=== PATIENT | female | born 1990 | race Caucasian/White ===

== ENCOUNTER 2022-09-10 16:41 | Outpatient (CLI) | payer BC, SELFPAY ==
[2022-09-10 14:15] LABS: Albumin* 4.3 g/dL (3.3-5.0); Chloride* 106 mmol/L (96-114); Potassium* 4.3 mmol/L (3.6-5.1); Sodium* 138 mmol/L (135-149)
[2022-09-10 14:17] LABS: Aspartate Amino Transferase* 18 U/L (12-35); Bilirubin Total* 0.9 mg/dL (0.1-1.5); Blood Urea Nitrogen* 12 mg/dL (5-24); Carbon Dioxide* 27 mmol/L (20-32); Cholesterol* 170 mg/dL (90-199); Creatinine* 0.7 mg/dL (0.5-1.5); Estimated Glomerular Filt Rate 117 ml/min; Total Protein* 6.7 g/dL (6.0-8.3)
[2022-09-10 14:18] LABS: Alanine Aminotransferase* 12 U/L (4-35); Alkaline Phosphatase* 38 U/L (40-150); Calcium* 9.3 mg/dL (8.4-10.6); Glucose* 79 mg/dL (60-115); HDL Cholesterol* 48 mg/dL (>=50); LDL Cholesterol Calculated 105 mg/dL (<100); Triglycerides* 84 mg/dL (40-149)
== END 2022-09-10 16:42 | disposition home or self-care (01) ==
PROVIDERS: Visit Provider Family Medicine
DX: E03.9 Hypothyroidism, unspecified (principal); Z13.6 Encounter for screening for cardiovascular disorders
CPT/HCPCS: 80053; 80061; 84443

== ENCOUNTER 2022-10-29 15:02 | Inpatient (IN) | payer BC, SELFPAY ==
[2022-10-28] VITALS (21 sets, daily range): BP systolic 93–130; BP diastolic 62–103; PULSE 64–118; RESP 14–22; TEMP 36.3–36.9; O2SAT 92–100; BMI 22.7
[2022-10-28 09:35] LABS: SARS PCR* Negative SARS-CoV-2 (Negative)
[2022-10-28 10:24] LABS: Hemoglobin* 14.1 gm/dL (12.0-16.0)
[2022-10-28 10:27] LABS: Ur HCG Qualitative* Negative (Negative)
[2022-10-28] MEDS: LACTATED RINGERS 1000 ML 1,000 ML 100 ML IV ×2 (10:40→12:39)
[2022-10-28] MEDS: SODIUM CHLORIDE 0.9 % (FLUSH) 10 ML SYRINGE IVF (10:41)
[2022-10-28 10:56] LABS: Creatinine* 0.7 mg/dL (0.5-1.5); Est. Creatinine Clearance* 98.71; Estimated Glomerular Filt Rate 117 ml/min
[2022-10-28] MEDS: CEFAZOLIN 2 GM INJ IVP (12:11)
[2022-10-28] MEDS: VASOPRESSIN 20 UNIT/ML INJ INJECTION (12:50)
[2022-10-28] MEDS: 0.9 % SODIUM CHLORIDE 50 ml 100 ML INJECTION (12:50)
[2022-10-28] MEDS: LIDOCAINE 1 % PF 30 ML INJECTION (12:50)
[2022-10-28] MEDS: fentaNYL 100 MCG/2 ML inj 50 MCG IVP (14:13)
--- NOTE | 2022-10-28 14:16 | W.ANESCHARGE ---
Anesthesia Charges Start Date/Time Anesthesia Start Date: 10/28/22 Anesthesia Start Time: 12:03 Stop Date/Time Anesthesia Stop Date: 10/28/22 Anesthesia Stop Time: 14:13 Summary Emergency: No
--- NOTE | 2022-10-28 14:18 | W.PM.GYNPROC ---
Procedure Note Date Seen: 10/28/22 Procedure Details: PREOPERATIVE DIAGNOSIS: Stage I A1 adenocarcinoma of cervix POSTOPERATIVE DIAGNOSIS: Same PROCEDURE: Total vaginal hysterectomy with bilateral salpingectomy Cystoscopy SURGEON: Delmis Solomon MD ANESTHESIA: Spinal IV FLUIDS: 700 mL crystalloid URINE OUTPUT: Not measured EBL: 25 mL FINDINGS: 1. Upon pelvic exam under anesthesia, the cervix and vagina were normal in appearance, excited from a deep cleft along the cervix at 8 o'clock, likely from previous cold knife cone procedure. Uterus was mobile and anteverted, of normal size and texture. There were no palpable adnexal masses. 2. Upon cystoscopy, bilateral ureteral jets were noted and there was no injury to the bladder mucosa. COMPLICATIONS: None PROCEDURE IN DETAIL: Patient was taken to the operating room with IV running. Spinal anesthesia was administered. She received cefazolin in preoperative prophylaxis. She was positioned in dorsal lithotomy position with her legs in candy-cane stirrups. Exam under anesthesia was performed for the above noted findings. Alcantar catheter was inserted. Weighted speculum was inserted. Cervix was grasped along its anterior and posterior lips with thyroid Debbie clamps. The cervical vaginal junction was circumferentially infiltrated with dilute vasopressin. The cervical vaginal junction was then incised circumferentially with Bovie electric cautery. The vaginal epithelium was dissected bluntly off bilateral uterosacral ligaments. Anterior colpotomy was performed sharply, and a Eli retractor was placed between the bladder and the uterus. The posterior colpotomy was performed sharply, and a long weighted speculum was placed in the cul-de-sac. Bilateral uterosacral ligaments were clamped, cut, suture ligated with 0 Vicryl, and tagged for later identification. The cardinal ligaments were serially clamped, cut, and suture ligated bilaterally with 0 Vicryl. Finally, the LigaSure Impact device was used to divide the remnants of the broad ligament bilaterally, ultimately freeing the uterus from its attachments to the pelvis. The left fallopian tube was actually divided from the mesosalpinx with the LigaSure Impact and removed still attached to the uterus. The uterus was delivered through the vagina. Bilateral ovaries were normal in appearance. The fimbriated edge of the left fallopian tube was grasped with [place] clamp. The left tube was then divided from the investing mesosalpinx, moving laterally to medially, ultimately removing the tube from the patient's body. Hemostasis was noted. The pedicles were examined and found to be hemostatic. There was some bleeding along the posterior vaginal cuff which was addressed with combination of Bovie and a whipstitch of 2-0 Vicryl. The angles of the vaginal cuff were closed with a stitch of 0 Vicryl, incorporating the distal most aspect of the uterosacral pedicle into the closure. The intervening vaginal cuff was closed with a series of [id number] sutures of 0 Vicryl. Hemostasis was noted. All instruments were removed from the vagina. Alcantar catheter was removed from the patient's bladder. Patient was administered IV sodium fluorescein to aid in visualization of ureteral jets. Cystoscopy was performed, revealing bilateral ureteral jets and no injury to the bladder. The cystoscope was removed and the Alcantar catheter replaced. Finally, the vulva was examined and there was a triangular patch of red in skin, approximately 2 cm in greatest dimension, noted along the midportion of the right labium majora. There was a smaller circular lesion, but 1 cm, along the left labium majora. These were consistent with either superficial garcia or traction on the skin. The subcutaneous tissues were injected with a small amount of 1% lidocaine at each site. Patient tolerated procedure well and was taken to recovery area in stable condition.
[2022-10-28] MEDS: HYDROmorphone 0.5 mg/0.5 ml inj IVP (14:37)
[2022-10-28] MEDS: OXYCODONE 5 MG TABLET PO ×3 (15:25→23:51)
[2022-10-28] MEDS: ACETAMINOPHEN 325 MG TABLET 650 MG PO (15:25)
[2022-10-28] MEDS: LACTATED RINGERS 1000 ML 1,000 ML 125 ML IV ×2 (15:32→23:02)
[2022-10-28] MEDS: diphenhydrAMINE 50 MG/ML inj 12.5 MG IVP (18:31)
[2022-10-28] MEDS: MORPHINE 2 MG/ML inj IVP ×2 (19:54→23:00)
[2022-10-28] MEDS: KETOROLAC 30 MG/ML inj IVP (20:51)
[2022-10-28] MEDS: ACETAMINOPHEN 500 MG TABLET 1000 MG PO (23:51)
[2022-10-28] MEDS: ONDANSETRON 2 MG/ML inj 4 MG IVP (23:56)
[2022-10-29] VITALS (45 sets, daily range): BP systolic 56–145; BP diastolic 41–114; PULSE 101–173; RESP 16–20; TEMP 36.5–37.7; O2SAT 93–100
[2022-10-29] MEDS: OXYCODONE 5 MG TABLET PO ×3 (00:29→23:41)
[2022-10-29] MEDS: ACETAMINOPHEN 500 MG TABLET 1000 MG PO ×2 (00:29→23:42)
[2022-10-29] MEDS: PROMETHAZINE 25 MG/ML INJ 12.5 MG IV (02:12)
[2022-10-29] MEDS: MORPHINE 2 MG/ML inj IVP ×3 (02:18→15:24)
[2022-10-29] MEDS: KETOROLAC 30 MG/ML inj IVP (02:51)
--- NOTE | 2022-10-29 03:09 | CRLHL7_ITS ---
For Patients: As a result of the Century Cures Act, medical imaging exams and procedure reports are released immediately into your electronic medical record. You may view this report before your referring provider. If you have questions, please contact your health care provider. Indication: Unstable vitals hysterectomy 15 hours ago Technique: Contrast CT abdomen and pelvis Comparison: No comparison FINDINGS: Heart size normal appeared lung bases are clear. Liver gallbladder pancreas spleen unremarkable adrenal glands unremarkable kidneys unremarkable normal caliber abdominal aorta and normal appendix. Alcantar in the urinary bladder which appears unremarkable. There is amount abdominal pelvic fluid. Dense hemorrhage/clot in the pelvis within the left pelvis a few foci of slightly increased density could represent active hemorrhage example see series 2, image 137 138 hysterectomy no significant hemorrhage in the prevesical space. There are scattered foci of air in the pelvis likely postsurgical. No suspicious bony lesions. Impression: 1. Large amount of fluid in the abdomen and pelvis with dense hemorrhage clot in the pelvis greater on the left. Some scattered foci of increased density in the pelvis may represent active hemorrhage. A few scattered foci of air likely postsurgical results called to Dr. Eubanks on 10/29/22 at 4:20am. Please note that all CT scans at this facility use dose modulation, iterative reconstruction, and/or weight-based dosing when appropriate to reduce radiation dose to as low as reasonably achievable. Dictated by Lisbeth Moon MD @ 10/29/2022 4:23:29 AM (Electronically Signed)
[2022-10-29 03:23] LABS: Hematocrit 21.8 % (33.0-51.0); Immature Granulocytes Pct Auto 0.6 %; Lymphocytes Percent Auto 5.2 % (20-44); Mean Corpuscular HGB Conc 34 gm/dL (32-36); Mean Corpuscular Hemoglobin 33 pg (26-34); Mean Corpuscular Volume 96 fL (80-100); Neutrophils Percent Auto 89.2 % (42.0-72.0); Platelet Count* 501 K/uL (140-440); RDW Coefficient of Variation % 12.2 % (11.5-15.5); Red Blood Count 2.28 m/uL (4.00-5.20); White Blood Count* 20.04 K/uL (4.50-11.00)
[2022-10-29 03:28] LABS: Hemoglobin* 7.4 gm/dL (12.0-16.0); Slide Review Reflex No
[2022-10-29 03:38] LABS: Estimated Glomerular Filt Rate 76 ml/min
[2022-10-29 03:44] LABS: Albumin* 2.7 g/dL (3.3-5.0)
[2022-10-29 03:45] LABS: Chloride* 103 mmol/L (96-114); Potassium* 4.6 mmol/L (3.6-5.1); Sodium* 130 mmol/L (135-149)
[2022-10-29 03:47] LABS: Alkaline Phosphatase* 27 U/L (40-150); Aspartate Amino Transferase* 15 U/L (12-35); Bilirubin Total* 1.4 mg/dL (0.1-1.5); Carbon Dioxide* 21 mmol/L (20-32); Creatinine* 1.1 mg/dL (0.5-1.5); Est. Creatinine Clearance* 62.82; Estimated Glomerular Filt Rate 68 ml/min; Total Protein* 4.6 g/dL (6.0-8.3)
[2022-10-29 03:48] LABS: Alanine Aminotransferase* 14 U/L (4-35); Blood Urea Nitrogen* 19 mg/dL (5-24); Calcium* 7.5 mg/dL (8.4-10.6); Glucose* 230 mg/dL (60-115)
--- NOTE | 2022-10-29 04:09 | PM.GYNPNPO ---
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 Consented for exploratory laparotomy obtain hemostasis. 2. Verbal consent obtained for blood transfusion of 2 units packed red blood cells may require additional blood products postoperatively. 3. Will be heading to the operating room shortly. 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 I was called by the patient's nurse approximately 3:00 a.m. on 10/29/2022 with concerns for tachycardia, hypotension and difficulty maintaining pain control since early last evening. Her blood pressure has been 60s/30s - 70s/40s with her pulse 110's. UOP 28ml/hour = oliguric. CBC showed hemoglobin of 7.4 with preoperative hemoglobin of 14.1, WBC = 20.04, platelets 501K. The patient just returned from a CT scan of the pelvis to assess for active bleeding. I spoke with the radiologist and there is a large amount of blood in the pelvis with clots on the left pelvic area suspicious for bleeding from the left pelvic blood vessels. She was consented for exploratory laparotomy. Dr. Solomon was notified. She is getting 2 units of packed red blood cells. Co a eggs and comprehensive metabolic panel are pending. 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 Complains of pelvic pain. Vital signs: Included in her medical record Psychiatric: Alert and oriented x3. Cardiac: Tachycardic, regular rate and rhythm. No gallop, rub or murmur. Chest: Clear to auscultation bilaterally. Abdomen: Mildly distended with mid suprapubic and left lower quadrant tenderness with rebound and guarding in the left lower quadrant. Decreased bowel sounds throughout. No CVA or flank tenderness. Extremities: No pain or edema. 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 Data Labs Labs: Laboratory Results - last 24 hr 10/28/22 10/28/22 10/28/22 08:52 10:16 10:16 WBC RBC Hgb 14.1 Hct MCV MCH MCHC RDW Coeff of Cris Plt Count Neut % (Auto) Lymph % (Auto) [place] % (Auto) Eos % (Auto) Baso % (Auto) Neut # (Auto) Lymph # (Auto) [place] # (Auto) Eos # (Auto) Baso # (Auto) Sodium Potassium Chloride Carbon Dioxide BUN Creatinine 0.7 Estimated Creat Clear 98.71 Estimated GFR 117 Glucose Calcium Total Bilirubin AST ALT Alkaline Phosphatase Total Protein Albumin Urine HCG, Qual SARS-CoV-2 (PCR) Negative SARS-CoV-2 Blood Type Antibody Screen Crossmatch ([facility]) 10/28/22 10/28/22 10/29/22 10:16 10:16 03:18 WBC RBC Hgb Hct MCV MCH MCHC RDW Coeff of Cris Plt Count Neut % (Auto) Lymph % (Auto) [place] % (Auto) Eos % (Auto) Baso % (Auto) Neut # (Auto) Lymph # (Auto) [place] # (Auto) Eos # (Auto) Baso # (Auto) Sodium Potassium Chloride Carbon Dioxide BUN Creatinine 1.0 Estimated Creat Clear 69.10 Estimated GFR 76 Glucose Calcium Total Bilirubin AST ALT Alkaline Phosphatase Total Protein Albumin Urine HCG, Qual Negative SARS-CoV-2 (PCR) Blood Type O Positive Antibody Screen NEGATIVE Crossmatch ([facility]) See Detail 10/29/22 10/29/22 03:18 03:18 WBC 20.04 H RBC 2.28 L Hgb 7.4 L* Hct 21.8 L MCV 96 MCH 33 MCHC 34 RDW Coeff of Cris 12.2 Plt Count 501 H Neut % (Auto) 89.2 H Lymph % (Auto) 5.2 L [place] % (Auto) 5.0 Eos % (Auto) 0.0 Baso % (Auto) 0.0 Neut # (Auto) 17.90 H Lymph # (Auto) 1.00 [place] # (Auto) 1.00 H Eos # (Auto) 0.00 Baso # (Auto) 0.00 Sodium 130 L Potassium 4.6 Chloride 103 Carbon Dioxide 21 BUN 19 Creatinine 1.1 Estimated Creat Clear 62.82 Estimated GFR 68 Glucose 230 H Calcium 7.5 L Total Bilirubin 1.4 AST 15 ALT 14 Alkaline Phosphatase 27 L Total Protein 4.6 L Albumin 2.7 L Urine HCG, Qual SARS-CoV-2 (PCR) Blood Type Antibody Screen Crossmatch ([facility])
[2022-10-29 04:31] LABS: INR 1.35 (0.91-1.10); Prothrombin Time 17.4 Seconds
[2022-10-29 04:32] LABS: Partial Thromboplastin Time* 27 Seconds (23-33)
[2022-10-29 04:33] LABS: Fibrinogen* 184 mg/dL (200-450)
--- NOTE | 2022-10-29 05:00 | P.PCN_ITS ---
Procedure Note Time Seen by Provider: 05:00 Date Seen: 10/29/22 Date of procedure: 10/29/22 Will [facility] bill your pro fee for this procedure?: Yes Procedure: Preoperative diagnosis: 32-year-old 2 para 2 postop day 1 from total vaginal hysterectomy for microinvasive cervical cancer with internal hemorrhaging. Postoperative diagnosis: Same: 2885 mL of blood and clot in the pelvis, 1 small arterial ligated. Procedure: Exploratory laparotomy, evacuation of blood and clot, obtained hemostasis Anesthesia: General endotracheal Surgeon: Bindu Eubanks MD Assist: Delmis Solomon MD IV Fluid: 1500 mL lactated Ringer's and 1500 mL normal saline Quantitative blood loss: 2885 mL Urine output: 500 mL clear urine at the end of the procedure Drains: Alcantar to gravity Specimen: None. Findings: On entry into the abdomen there were large clots and blood within the pelvis. The clots were weighed and blood measured from suction. Ovaries appeared normal. There was 1 arterial that was actively bleeding in the left pelvis with in the hysterectomy pedicles. Possibly a small uterine or infundibulopelvic ligament vessel. Excellent hemostasis was noted at the end of the procedure. Procedure: Patient was taken the operating room where general is she is was found be adequate. She was placed in dorsal supine position. Catheter was in place prior to arriving in the operating room. Prepped and draped in normal sterile manner. A Pfannenstiel skin incision was made and carried sharply to the fascia. The fascia was incised in the midline this incision carried laterally with Chadwick scissors. The superior aspect of the fascial incision was tented up with Sihmael clamps in the rectus muscles dissected off with a combination of blunt and sharp dissection. The inferior aspect of the fascial incision was grasped with Ishmael clamps, tented up and dissected off the muscles with the combination sharp and blunt dissection. The rectus muscles were in the midline, the peritoneum identified and entered bluntly. The peritoneal opening was extended with blunt pressure. Clots and blood were removed. The patient was placed in mild Trendelenburg position. Bowel pack was placed to keep the bowels cephalad for the procedure. An Jose self-retaining retractor was placed. After the blood clots and old blood were removed from the pelvis, the vaginal cuff and uterine pedicles were closely inspected. There was 1 arterial in the left pelvic sidewall that was actively bleeding. This was grasped with a tonsil clamp and suture ligated with 0-Vicryl suture. Two additional figure of X sutures were placed using 2-0 Vicryl along the peritoneal edges of 2 additional pedicles to obtain hemostasis. The pelvis was then copiously irrigated with sterile, warm water and hemostasis verified. Surgicel was then applied along the left hysterectomy pedicles and over the vaginal cuff to verify hemostasis. The Jose retractor and bowel pack were removed. The rectus muscles were inspected and hemostasis obtained with bipolar cautery. The fascia was reapproximated using 0 Maxon loop in a running manner. The subcutaneous tissue was reapproximated using 2-0 plain gut interrupted sutures and the skin repaired using 4-0 Monocryl in a subcuticular manner. Exofin skin adhesive and a Methaplex dressing were placed. The patient tolerated the procedure well. Sponge, lap and instrument counts were correct x2 at the end of the procedure. She was awakened from anesthesia and taken to recovery room stable condition. Patient received: Blood products: 2u pRBC's, 1u FFP and 1u cryoprecipitate in the OR. 2 g IV Ancef prior to start of the procedure. 1 g IV calcium gluconate during the procedure. Surgeon: Bindu Eubanks MD
[2022-10-29] MEDS: BUPIVACAINE 0.25% 30 ML INJECTION (05:25)
--- NOTE | 2022-10-29 05:49 | PC.NURSE ---
Patient vitals signs throughout the rest of the 6 hour post op routine normal, pulse was slightly elevated 100's- 118. Patient reporting significant pain at that time and morhpine was given as well as oxycodone 10mg and 1000mg tylenol- please see MAR for documented times. Patient was able to rest between these doses, slightly nauseated. At midnight RN was called into room and patient had vomited small amount of clear/bile tinged emesis. Zofran was given with some relief. At approximately 0215 patient called RN into room again and was requesting further nausea medication and pain medication (morhpine and reglan given) and reporting significant increase in nausea/vomiting as well as lower abdominal pain. RN obtained vitals in which HR and BP were abnormal (see documentation) and assessed abdomen and bleeding. Minimal bleeding was noted vaginally, patient reporting feeling bloated and RN notes some abdominal distention. Abdomen tender to the touch. Bowel sounds hypoactive. RN stepped out of room to update charger and to page detention deputy provider, Dr. Eubanks at 0303. Provider called back right away and was given an update on patient status. New orders recieved for labs and abdomen/pelvic CT. talent management specialist at bedside to assess as well. Vitals continuously being monitored Q5min and fluid bolus started. Primary RN went back to update patient of plan and noted brownish emesis, no coffee ground texture noted. Lab at bedside at 0316 [address] patient taken to CT approximatley 0343. Vitals continued upon return and provider soon at bedside to assess patient. Lab returned with critical hgb level and orders for blood administration were entered. Provider discussed plan of care with patient to do exploratory laparotomy and patient consented. Blood administration started on OB unit, patient called back to OR shortly after starting and OR staff continued infusion. Care relinquished to OR staff.
[2022-10-29] MEDS: fentaNYL 100 MCG/2 ML inj 50 MCG IVP (07:02)
--- NOTE | 2022-10-29 07:05 | W.ANESCHARGE ---
Anesthesia Charges Start Date/Time Anesthesia Start Date: 10/29/22 Anesthesia Start Time: 05:02 Stop Date/Time Anesthesia Stop Date: 10/29/22 Anesthesia Stop Time: 06:48 Summary Emergency: Yes
[2022-10-29 07:09] LABS: Hematocrit 28.4 % (33.0-51.0); Hemoglobin* 9.4 gm/dL (12.0-16.0); Immature Granulocytes Pct Auto 0.7 %; Lymphocytes Percent Auto 3.6 % (20-44); Mean Corpuscular HGB Conc 33 gm/dL (32-36); Mean Corpuscular Hemoglobin 32 pg (26-34); Mean Corpuscular Volume 96 fL (80-100); Monocytes Percent Auto 4.9 % (0.0-11.0); Neutrophils Percent Auto 90.8 % (42.0-72.0); Platelet Count* 244 K/uL (140-440); RDW Coefficient of Variation % 13.2 % (11.5-15.5); Red Blood Count 2.97 m/uL (4.00-5.20); White Blood Count* 21.11 K/uL (4.50-11.00)
[2022-10-29 07:10] LABS: Slide Review Reflex No
[2022-10-29] MEDS: HYDROmorphone 0.5 mg/0.5 ml inj IVP (07:26)
[2022-10-29 07:33] LABS: Albumin* 2.5 g/dL (3.3-5.0); Chloride* 106 mmol/L (96-114); Potassium* 4.8 mmol/L (3.6-5.1); Sodium* 131 mmol/L (135-149)
[2022-10-29 07:36] LABS: Alanine Aminotransferase* 16 U/L (4-35); Alkaline Phosphatase* 28 U/L (40-150); Aspartate Amino Transferase* 20 U/L (12-35); Blood Urea Nitrogen* 17 mg/dL (5-24); Calcium* 7.2 mg/dL (8.4-10.6); Carbon Dioxide* 20 mmol/L (20-32); Creatinine* 0.9 mg/dL (0.5-1.5); Est. Creatinine Clearance* 76.77; Estimated Glomerular Filt Rate 87 ml/min; Glucose* 156 mg/dL (60-115); Total Protein* 4.5 g/dL (6.0-8.3)
[2022-10-29 07:40] LABS: INR 1.21 (0.91-1.10)
[2022-10-29 07:41] LABS: Partial Thromboplastin Time* 26 Seconds (23-33)
[2022-10-29 07:42] LABS: Fibrinogen* 230 mg/dL (200-450)
[2022-10-29 11:22] LABS: Basophils Percent Auto 0.1 % (0.0-3.0); Hematocrit 25.4 % (33.0-51.0); Hemoglobin* 8.6 gm/dL (12.0-16.0); Immature Granulocytes Pct Auto 0.5 %; Lymphocytes Percent Auto 4.8 % (20-44); Mean Corpuscular HGB Conc 34 gm/dL (32-36); Mean Corpuscular Hemoglobin 32 pg (26-34); Mean Corpuscular Volume 93 fL (80-100); Neutrophils Percent Auto 90.6 % (42.0-72.0); Platelet Count* 216 K/uL (140-440); RDW Coefficient of Variation % 13.4 % (11.5-15.5); Red Blood Count 2.72 m/uL (4.00-5.20); White Blood Count* 18.65 K/uL (4.50-11.00)
[2022-10-29 11:26] LABS: Slide Review Reflex No
[2022-10-29] MEDS: LEVOTHYROXINE 75 MCG TABLET PO (11:29)
[2022-10-29 11:34] LABS: Albumin* 2.6 g/dL (3.3-5.0); Chloride* 105 mmol/L (96-114); Potassium* 4.7 mmol/L (3.6-5.1); Sodium* 133 mmol/L (135-149)
[2022-10-29 11:36] LABS: Creatinine* 0.9 mg/dL (0.5-1.5); Est. Creatinine Clearance* 76.77; Estimated Glomerular Filt Rate 87 ml/min
[2022-10-29 11:37] LABS: Alanine Aminotransferase* 12 U/L (4-35); Alkaline Phosphatase* 29 U/L (40-150); Aspartate Amino Transferase* 18 U/L (12-35); Bilirubin Total* 1.1 mg/dL (0.1-1.5); Blood Urea Nitrogen* 16 mg/dL (5-24); Carbon Dioxide* 26 mmol/L (20-32); Glucose* 145 mg/dL (60-115); Total Protein* 4.6 g/dL (6.0-8.3)
[2022-10-29 11:38] LABS: Calcium* 7.6 mg/dL (8.4-10.6)
[2022-10-29 11:40] LABS: INR 1.19 (0.91-1.10); Prothrombin Time 15.8 Seconds
[2022-10-29 11:41] LABS: Fibrinogen* 242 mg/dL (200-450); Partial Thromboplastin Time* 26 Seconds (23-33)
[2022-10-29] MEDS: LACTATED RINGERS 1000 ML 1,000 ML 35 ML IV (11:50)
[2022-10-29] MEDS: CEFAZOLIN 2 GM in 0.9 % SODIUM CHLORIDE Mini-bag 100 ML IVPB ×2 (11:52→18:56)
[2022-10-29] MEDS: CALCIUM GLUC 1,000MG/50 ML 1,000 MG/50 ML BAG 100 MG IVPB (13:17)
[2022-10-29 13:25] LABS: Basophils Percent Auto 0.1 % (0.0-3.0); Hematocrit 24.9 % (33.0-51.0); Hemoglobin* 8.6 gm/dL (12.0-16.0); Immature Granulocytes Pct Auto 0.5 %; Lymphocytes Percent Auto 5.2 % (20-44); Mean Corpuscular HGB Conc 35 gm/dL (32-36); Mean Corpuscular Hemoglobin 32 pg (26-34); Mean Corpuscular Volume 93 fL (80-100); Monocytes Percent Auto 4.6 % (0.0-11.0); Neutrophils Percent Auto 89.6 % (42.0-72.0); Platelet Count* 220 K/uL (140-440); RDW Coefficient of Variation % 13.3 % (11.5-15.5); Red Blood Count 2.68 m/uL (4.00-5.20); White Blood Count* 16.89 K/uL (4.50-11.00)
[2022-10-29 13:27] LABS: Slide Review Reflex No
[2022-10-29 13:51] LABS: INR 1.15 (0.91-1.10); Partial Thromboplastin Time* 25 Seconds (23-33); Prothrombin Time 15.4 Seconds
[2022-10-29 13:52] LABS: Fibrinogen* 245 mg/dL (200-450)
[2022-10-29 13:54] LABS: Albumin* 2.6 g/dL (3.3-5.0); Chloride* 106 mmol/L (96-114); Potassium* 4.4 mmol/L (3.6-5.1); Sodium* 132 mmol/L (135-149)
[2022-10-29 13:56] LABS: Aspartate Amino Transferase* 19 U/L (12-35); Carbon Dioxide* 23 mmol/L (20-32); Creatinine* 0.8 mg/dL (0.5-1.5); Est. Creatinine Clearance* 86.37; Estimated Glomerular Filt Rate 100 ml/min
[2022-10-29 13:57] LABS: Alanine Aminotransferase* 12 U/L (4-35); Alkaline Phosphatase* 28 U/L (40-150); Blood Urea Nitrogen* 15 mg/dL (5-24); Calcium* 7.5 mg/dL (8.4-10.6); Glucose* 138 mg/dL (60-115); Total Protein* 4.6 g/dL (6.0-8.3)
--- NOTE | 2022-10-29 14:26 | PM.GYNPNPO ---
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 Will begin iron supplementation once she is tolerating orals. INR still slightly prolonged but no longer with any bleeding. Fibrinogen normal range, platelets normal. (2) Status post laparotomy: Status: Acute Assessment and Plan: Appropriate post-op course. Will advance diet as tolerated. Follow for return of bowel function. Will consider discontinuation of catheter once she is ambulatory. (3) Internal hemorrhage: Status: Acute Assessment and Plan: as above Postoperative Procedures: Procedures Operation Date: 10/28/22 11:20 Actual Procedure Side Surgeon p Total Vaginal Hysterectomy, Bilateral Salpingectomy, Cystoscopy Delmis Solomon MD Operation Date: 10/29/22 05:55 Actual Procedure Side Surgeon p Exploratory Laparotomy, Evacuation of blood clots and blood, obtain hemostasis. 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 She received 2 u PRBC, 1 u FFP, 1 u cryo. She reports pain is much improved. She has received one dose IV morphine in the last 6 hours. She is tolerating broth. She is not having flatus. Catheter still in place. No vaginal bleeding. 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 Data Labs Labs: Laboratory Results - last 24 hr 10/28/22 10/29/22 10/29/22 10:16 03:18 03:18 WBC 20.04 H RBC 2.28 L Hgb 7.4 L* Hct 21.8 L MCV 96 MCH 33 MCHC 34 RDW Coeff of Cris 12.2 Plt Count 501 H Neut % (Auto) 89.2 H Lymph % (Auto) 5.2 L [place] % (Auto) 5.0 Eos % (Auto) 0.0 Baso % (Auto) 0.0 Neut # (Auto) 17.90 H Lymph # (Auto) 1.00 [place] # (Auto) 1.00 H Eos # (Auto) 0.00 Baso # (Auto) 0.00 INR APTT Fibrinogen Sodium Potassium Chloride Carbon Dioxide BUN Creatinine 1.0 Estimated Creat Clear 69.10 Estimated GFR 76 Glucose Calcium Total Bilirubin AST ALT Alkaline Phosphatase Total Protein Albumin Blood Type O Positive Antibody Screen NEGATIVE Crossmatch ([facility]) See Detail 10/29/22 10/29/22 10/29/22 03:18 04:05 07:00 WBC 21.11 H RBC 2.97 L Hgb 9.4 L Hct 28.4 L MCV 96 MCH 32 MCHC 33 RDW Coeff of Cris 13.2 Plt Count 244 Neut % (Auto) 90.8 H Lymph % (Auto) 3.6 L [place] % (Auto) 4.9 Eos % (Auto) 0.0 Baso % (Auto) 0.0 Neut # (Auto) 19.20 H Lymph # (Auto) 0.80 L [place] # (Auto) 1.00 H Eos # (Auto) 0.00 Baso # (Auto) 0.00 INR 1.35 H APTT 27 Fibrinogen 184 L Sodium 130 L Potassium 4.6 Chloride 103 Carbon Dioxide 21 BUN 19 Creatinine 1.1 Estimated Creat Clear 62.82 Estimated GFR 68 Glucose 230 H Calcium 7.5 L Total Bilirubin 1.4 AST 15 ALT 14 Alkaline Phosphatase 27 L Total Protein 4.6 L Albumin 2.7 L Blood Type Antibody Screen Crossmatch ([facility]) 10/29/22 10/29/22 10/29/22 07:00 07:00 11:15 WBC 18.65 H RBC 2.72 L Hgb 8.6 L Hct 25.4 L MCV 93 MCH 32 MCHC 34 RDW Coeff of Cris 13.4 Plt Count 216 Neut % (Auto) 90.6 H Lymph % (Auto) 4.8 L [place] % (Auto) 4.0 Eos % (Auto) 0.0 Baso % (Auto) 0.1 Neut # (Auto) 16.90 H Lymph # (Auto) 0.90 [place] # (Auto) 0.70 Eos # (Auto) 0.00 Baso # (Auto) 0.00 INR 1.21 H APTT 26 Fibrinogen 230 Sodium 131 L Potassium 4.8 Chloride 106 Carbon Dioxide 20 BUN 17 Creatinine 0.9 Estimated Creat Clear 76.77 Estimated GFR 87 Glucose 156 H Calcium 7.2 L Total Bilirubin 1.0 AST 20 ALT 16 Alkaline Phosphatase 28 L Total Protein 4.5 L Albumin 2.5 L Blood Type Antibody Screen Crossmatch ([facility]) 10/29/22 10/29/22 10/29/22 11:15 11:15 13:15 WBC 16.89 H RBC 2.68 L Hgb 8.6 L Hct 24.9 L MCV 93 MCH 32 MCHC 35 RDW Coeff of Cris 13.3 Plt Count 220 Neut % (Auto) 89.6 H Lymph % (Auto) 5.2 L [place] % (Auto) 4.6 Eos % (Auto) 0.0 Baso % (Auto) 0.1 Neut # (Auto) 15.10 H Lymph # (Auto) 0.90 [place] # (Auto) 0.80 Eos # (Auto) 0.00 Baso # (Auto) 0.00 INR 1.19 H APTT 26 Fibrinogen 242 Sodium 133 L Potassium 4.7 Chloride 105 Carbon Dioxide 26 BUN 16 Creatinine 0.9 Estimated Creat Clear 76.77 Estimated GFR 87 Glucose 145 H Calcium 7.6 L Total Bilirubin 1.1 AST 18 ALT 12 Alkaline Phosphatase 29 L Total Protein 4.6 L Albumin 2.6 L Blood Type Antibody Screen Crossmatch ([facility]) 10/29/22 10/29/22 13:15 13:15 WBC RBC Hgb Hct MCV MCH MCHC RDW Coeff of Cris Plt Count Neut % (Auto) Lymph % (Auto) [place] % (Auto) Eos % (Auto) Baso % (Auto) Neut # (Auto) Lymph # (Auto) [place] # (Auto) Eos # (Auto) Baso # (Auto) INR 1.15 H APTT 25 Fibrinogen 245 Sodium 132 L Potassium 4.4 Chloride 106 Carbon Dioxide 23 BUN 15 Creatinine 0.8 Estimated Creat Clear 86.37 Estimated GFR 100 Glucose 138 H Calcium 7.5 L Total Bilirubin 1.0 AST 19 ALT 12 Alkaline Phosphatase 28 L Total Protein 4.6 L Albumin 2.6 L Blood Type Antibody Screen Crossmatch ([facility])
--- NOTE | 2022-10-29 18:34 | PC.NURSE ---
shift note: pt to floor from pacu @ 2019 via bed. pt pale and drowsy on admit from pacu. recovery vss stable. HR 110's-120's. Dr. Lay notified via phone this a.m @ 0815. No further orders. Reviewed orders via phone with Dr. Lay. Katharine patent. LS dim/clr. Pt using IS to 1000. Sats 98-100%. Pt tolerating clr liquids. BS hypo x4. Drsg to lower abd c/d/i. Monalisa Pad c/d. Galo's & SCD's in place. Katharine patent. Iv intact/patent. Pt had temps 99-99.8. Pt face this afternoon flushed and eyes red. Updated Dr. Lay and Dr. Solomon this afternoon on pt. Labs ordered for a.m and cefazolin IV x1 ordered.
--- NOTE | 2022-10-29 22:10 | PC.NURSE ---
Dr crowder updated on patients HR, no new orders given
[2022-10-30] VITALS (12 sets, daily range): BP systolic 110–144; BP diastolic 62–85; PULSE 96–116; RESP 16–18; TEMP 36.7–37.4; O2SAT 97–98
[2022-10-30] MEDS: OXYCODONE 5 MG TABLET PO (05:03)
--- NOTE | 2022-10-30 07:36 | PC.NURSE ---
[id number]: patient up with SBA, mckeon back filled and DCed intact. patients pain well controlled see EMAR for meds given. at bedside overnight. scant amount of blood on peripad. no distention to abd. dressing c/d/i. Dr mark updated on patients HR. see VS as charted.
[2022-10-30 07:56] LABS: Eosinophils Percent Auto 0.2 % (0.0-7.0); Hematocrit 20.8 % (33.0-51.0); Immature Granulocytes Pct Auto 0.7 %; Lymphocytes Percent Auto 11.8 % (20-44); Mean Corpuscular HGB Conc 34 gm/dL (32-36); Mean Corpuscular Hemoglobin 32 pg (26-34); Mean Corpuscular Volume 95 fL (80-100); Monocytes Percent Auto 7.4 % (0.0-11.0); Neutrophils Percent Auto 79.9 % (42.0-72.0); Platelet Count* 192 K/uL (140-440); Red Blood Count 2.19 m/uL (4.00-5.20); White Blood Count* 12.07 K/uL (4.50-11.00)
[2022-10-30 08:07] LABS: Chloride* 107 mmol/L (96-114)
[2022-10-30 08:08] LABS: Potassium* 3.8 mmol/L (3.6-5.1); Sodium* 134 mmol/L (135-149)
[2022-10-30 08:10] LABS: Creatinine* 0.7 mg/dL (0.5-1.5); Est. Creatinine Clearance* 98.71; Estimated Glomerular Filt Rate 117 ml/min; INR 1.04 (0.91-1.10); Partial Thromboplastin Time* 28 Seconds (23-33); Prothrombin Time 14.2 Seconds
[2022-10-30 08:11] LABS: Blood Urea Nitrogen* 12 mg/dL (5-24); Calcium* 7.4 mg/dL (8.4-10.6); Carbon Dioxide* 28 mmol/L (20-32); Fibrinogen* 307 mg/dL (200-450); Glucose* 104 mg/dL (60-115)
[2022-10-30 08:12] LABS: Slide Review Reflex No
[2022-10-30] MEDS: LEVOTHYROXINE 75 MCG TABLET PO (08:28)
--- NOTE | 2022-10-30 08:46 | PM.GYNPNPO ---
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 plan (1) Acute anemia: Status: Acute (2) Status post laparotomy: Status: Acute (3) Internal hemorrhage: Status: Acute Plan Postoperative Review: - Admitted for: Scheduled surgery complicated by intraabdominal bleeding requiring exploratory laparotomy - Surgical procedure: Vaginal hysterectomy, bilateral salpingectomy, cystoscopy, emergency exploratory laparotomy - Skin incision: Pfannenstiel - Closure: Suture - Estimated blood loss: 25 mL at time of original hysterectomy, 2885 cc from exploratory laparotomy - Intraoperative Complications: Intra-abdominal hemorrhage - Ancef redosed 2/2 QBL >1500 cc Acute blood loss anemia 2/2 intraabdominal hemorrhage - Source of bleeding controlled with ex lap - s/p 2u of pRBC, 1u FFP, 1u Cryo - Vital: tachycardia 100-110s, BP 130-140s/70-90s - Urine output: Adequate - Benign abdominal exam - Coag normalized this AM - Preop Hgb 14.1 - Postop Hgb 7.4 --> s/p massive transfusion (2u of pRBC, 1u FFP, 1u Cryo ) --> 9.4 --> 8.6 --> 8.6 --> 7.0 - Plan: 1u pRBC stat, will redraw hgb 2 hours after pRBC Postoperative care: - Diet: Advance as tolerated - Fluid: Encourage oral intake. continue strict I/Os - Activity: Encourage ambulation after transfusion and incentive spirometry - Pain: Oxy, Tylenol and Ibuprofen PRN - DVT prophylaxis: SCDs when not ambulating Dispo: Patient is POD#2 from vaginal hysterectomy and POD#1 from ex lap. No concern for continued hemorrhage at this time due to benign abdominal exam. Will transfuse 1u of pRBC and continue to monitor. Postoperative Procedures: Procedures Operation Date: 10/28/22 11:20 Actual Procedure Side Surgeon p Total Vaginal Hysterectomy, Bilateral Salpingectomy, Cystoscopy Delmis Solomon MD Operation Date: 10/29/22 05:55 Actual Procedure Side Surgeon p Exploratory Laparotomy, Evacuation of blood clots and blood, obtain hemostasis. 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 Overnight patient had no complaints. She states she was feeling improvements throughout the day yesterday but early this AM, she's been feeling more and more fatigued and nauseous. Her pain is well controlled on oral pain medications. She was tolerating a regular diet yesterday but today she doesn't feel well enough to eat yet. She has passed flatus. She is not ambulating without difficulty due to fatigue 2/2 anemia. She is urinating 700 cc overnight per nursing report this AM. Her Mckeon catheter was recently removed prior to me rounding on her. We discussed her hemoglobin dropping down to 7 on this a.m. labs. She reports no pain out of proportion to what she would expect and nothing like when she was having intraperitoneal bleeding, just tenderness at incision site when she presses or moves too quickly. She is tearful as she is disappointed that she feels worse this morning. The fatigue and nausea is most bothersome to her right now. I discussed with patient that she needs another unit of blood to feel better prior to attempting any more of her postop milestones such as ambulating. It's possible she would need two more units given her massive blood loss. Reassuringly, her blood pressure has been normotensive, her pain has been well controlled, and she's been having adequate urine output overnight. We reviewed warning signs of intraabdominal bleeding. She verbalized understanding and would like to proceed with the blood transfusion. She currently denies chest pain, SOB, or dizziness (however, she's hasn't attempted to get out of bed this AM). ROTARY DRILL RIG OPERATOR-PN: Obj Exam Physical Exam: Vital signs: Temp Pulse Resp BP Pulse Ox O2 Del Method 98.1 F 114 H 16 144/73 H 98 10/30/22 08:32 10/30/22 08:32 10/30/22 08:32 10/30/22 08:32 10/30/22 08:32 10/30/22 08:32 Narrative: Physical exam: General: Fatigued appearing and tearful Psych: Alert and oriented x3, full affect HEENT: Normocephalic, atraumatic, pale conjunctiva noted bilateral Neck: No cervical adenopathy, no thyromegaly Heart: Tachycardic, Regular rhythm, no murmur rub or gallop Lungs: Clear to auscultation bilaterally Abdomen: Normoactive bowel sounds, soft, no tenderness away from surgical site, rebound, or guarding, no masses. Mild tenderness at surgical site. Bandage clean, dry and intact. Skin: No lesions or rashes but patient is pale Lower extremities: No edema or erythema. SCDs in place Pelvic exam: Scant vaginal bleeding Urinary Catheter Management: mckeon: Cath placed during this visit: yes Urethral indwelling: Yes Reason for continuing: surgical procedure Insertion date: 10/27/22 Insertion time: 12:13 ROTARY DRILL RIG OPERATOR - PN: Obj Data Labs Labs: Laboratory Results - last 24 hr 10/28/22 10/29/22 10/29/22 10:16 11:15 11:15 WBC 18.65 H RBC 2.72 L Hgb 8.6 L Hct 25.4 L MCV 93 MCH 32 MCHC 34 RDW Coeff of Cris 13.4 Plt Count 216 Neut % (Auto) 90.6 H Lymph % (Auto) 4.8 L [place] % (Auto) 4.0 Eos % (Auto) 0.0 Baso % (Auto) 0.1 Neut # (Auto) 16.90 H Lymph # (Auto) 0.90 [place] # (Auto) 0.70 Eos # (Auto) 0.00 Baso # (Auto) 0.00 INR 1.19 H APTT 26 Fibrinogen 242 Sodium Potassium Chloride Carbon Dioxide BUN Creatinine Estimated Creat Clear Estimated GFR Glucose Calcium Total Bilirubin AST ALT Alkaline Phosphatase Total Protein Albumin Blood Type O Positive Antibody Screen NEGATIVE Crossmatch ([facility]) See Detail 10/29/22 10/29/22 10/29/22 11:15 13:15 13:15 WBC 16.89 H RBC 2.68 L Hgb 8.6 L Hct 24.9 L MCV 93 MCH 32 MCHC 35 RDW Coeff of Cris 13.3 Plt Count 220 Neut % (Auto) 89.6 H Lymph % (Auto) 5.2 L [place] % (Auto) 4.6 Eos % (Auto) 0.0 Baso % (Auto) 0.1 Neut # (Auto) 15.10 H Lymph # (Auto) 0.90 [place] # (Auto) 0.80 Eos # (Auto) 0.00 Baso # (Auto) 0.00 INR APTT Fibrinogen Sodium 133 L 132 L Potassium 4.7 4.4 Chloride 105 106 Carbon Dioxide 26 23 BUN 16 15 Creatinine 0.9 0.8 Estimated Creat Clear 76.77 86.37 Estimated GFR 87 100 Glucose 145 H 138 H Calcium 7.6 L 7.5 L Total Bilirubin 1.1 1.0 AST 18 19 ALT 12 12 Alkaline Phosphatase 29 L 28 L Total Protein 4.6 L 4.6 L Albumin 2.6 L 2.6 L Blood Type Antibody Screen Crossmatch ([facility]) 10/29/22 10/30/22 10/30/22 13:15 07:42 07:42 WBC RBC Hgb Hct MCV MCH MCHC RDW Coeff of Cris Plt Count Neut % (Auto) Lymph % (Auto) [place] % (Auto) Eos % (Auto) Baso % (Auto) Neut # (Auto) Lymph # (Auto) [place] # (Auto) Eos # (Auto) Baso # (Auto) INR 1.15 H 1.04 APTT 25 28 Fibrinogen 245 307 Sodium 134 L Potassium 3.8 Chloride 107 Carbon Dioxide 28 BUN 12 Creatinine 0.7 Estimated Creat Clear 98.71 Estimated GFR 117 Glucose 104 Calcium 7.4 L Total Bilirubin AST ALT Alkaline Phosphatase Total Protein Albumin Blood Type Antibody Screen Crossmatch ([facility]) 10/30/22 07:42 WBC 12.07 H RBC 2.19 L Hgb 7.0 L* Hct 20.8 L MCV 95 MCH 32 MCHC 34 RDW Coeff of Cris 14.0 Plt Count 192 Neut % (Auto) 79.9 H Lymph % (Auto) 11.8 L [place] % (Auto) 7.4 Eos % (Auto) 0.2 Baso % (Auto) 0.0 Neut # (Auto) 9.60 H Lymph # (Auto) 1.40 [place] # (Auto) 0.90 Eos # (Auto) 0.00 Baso # (Auto) 0.00 INR APTT Fibrinogen Sodium Potassium Chloride Carbon Dioxide BUN Creatinine Estimated Creat Clear Estimated GFR Glucose Calcium Total Bilirubin AST ALT Alkaline Phosphatase Total Protein Albumin Blood Type Antibody Screen Crossmatch ([facility])
[2022-10-30] MEDS: ONDANSETRON 2 MG/ML inj 4 MG IVP (09:18)
--- NOTE | 2022-10-30 13:00 | CRLHL7_ITS ---
For Patients: As a result of the Century Cures Act, medical imaging exams and procedure reports are released immediately into your electronic medical record. You may view this report before your referring provider. If you have questions, please contact your health care provider. Indication: Follow-up hemorrhage Technique: Postcontrast CT abdomen and pelvis. 67 cc Isovue 370 intravenous contrast. Please note that all CT scans at this facility use dose modulation, iterative reconstruction, and/or weight-based dosing when appropriate to reduce radiation dose to as low as reasonably achievable. Comparison: 10/29/2022 Findings: Atelectasis is present within both lung bases along with trace pleural effusions. Normal liver. Gallbladder distended without gallstones. No biliary obstruction. Pancreas and spleen normal. Adrenal glands unremarkable. Postop changes of hysterectomy. Interval evacuation of pelvic hematoma with decreased intra-abdominal and intrapelvic free fluid. A small amount of intraperitoneal free air is present from the surgery. Mild subcutaneous air also present inferiorly. No abscess. No adnexal mass. Bladder is distended. A small bubble of air is present within the bladder related to the Alcantar catheter which was present on the prior study. Dilated loops of colon are present extending to the proximal sigmoid colon. No small bowel obstruction. No fracture. Impression: Interval open abdominal surgery with evacuation of the previously noted hematoma and decreased free fluid in the abdomen and pelvis. Dilated loops of colon compatible with postoperative ileus. Follow-up recommended. Bladder is distended. Re-insertion of Alcantar catheter may be necessary. Please note that all CT scans at this facility use dose modulation, iterative reconstruction, and/or weight-based dosing when appropriate to reduce radiation dose to as low as reasonably achievable. Dictated by Spencer Rosas MD @ 10/30/2022 2:19:09 PM (Electronically Signed)
[2022-10-30] MEDS: PROMETHAZINE 25 MG/ML INJ 12.5 MG IV (13:11)
--- NOTE | 2022-10-30 14:19 | PM.EN ---
Chart Event Note Time Seen by Provider: 14:00 Date Seen: 10/30/22
[2022-10-30 15:31] LABS: Hemoglobin* 8.8 gm/dL (12.0-16.0)
--- NOTE | 2022-10-30 20:09 | PC.NURSE ---
shift note: pt feeling weak and having increased nausea. pt appeared pale and sleepy this a.m.. Pt received 4mg zofran IV w/o relief. Herbal Q-easy tried with no relief of nausea. Dr. Gomes updated this a.m via phone. BS Hypo x4. 1 unit PRB given with infusion ending around 1300. Pt VSS stable. pt afeb. Pt appears flush and sweaty. Pt states nausea increased and vomited 250cc. Pt states abd pain increased at surgical site. Abd soft on palpation, BS hypo x4, No drainage to gibran pad or shadowing to lower abd drsg. Dr. Gomes notified. Order for CT abd/pelvis.. Dr. Gomes at bedside. Order to replace mckeon @ 1330. 900cc of clr straw urine immediately in mckeon bag. Pt stated relief of abd pain. Pt placed on NPO status per Dr. Gomes. Pt up this lawrence states she feels better. pt stated she felt like she passed some flatus when in chair.
[2022-10-30] MEDS: ACETAMINOPHEN 500 MG TABLET 1000 MG PO (20:42)
[2022-10-30 20:43] LABS: Hemoglobin* 8.4 gm/dL (12.0-16.0)
[2022-10-31] VITALS (7 sets, daily range): BP systolic 114–135; BP diastolic 63–82; PULSE 86–110; RESP 16–18; TEMP 36.7–37.5; O2SAT 98–100
[2022-10-31] MEDS: LEVOTHYROXINE 75 MCG TABLET PO (06:36)
[2022-10-31] MEDS: ACETAMINOPHEN 500 MG TABLET 1000 MG PO ×2 (06:38→15:44)
--- NOTE | 2022-10-31 06:45 | PC.NURSE ---
[id number]: patient c/o headache overnight, given Tylenol, patient states some improvement but states she just felt sort of uncomfortable and didnt sleep the best. declined pain meds when offered, appeared to sleep between cares. ice pack to abd. aqua k to back. no bleeding noted on gibran pad, patient reports flatus, abd. dressing c/d/i. mckeon patent and draining. at bedside overnight
[2022-10-31] MEDS: SIMETHICONE 80 MG TAB.CHEW 160 MG PO (09:18)
[2022-10-31 09:41] LABS: Basophils Absolute Auto 0.01 K/uL (0.00-0.30); Basophils Percent Auto 0.1 % (0.0-3.0); Eosinophils Absolute Auto 0.03 K/uL (0.00-0.50); Eosinophils Percent Auto 0.3 % (0.0-7.0); Hematocrit 24.7 % (33.0-51.0); Hemoglobin* 8.3 gm/dL (12.0-16.0); Immature Granulocytes Abs Auto 0.16 K/uL (0.00-0.30); Immature Granulocytes Pct Auto 1.6 %; Lymphocytes Percent Auto 13.6 % (20-44); Mean Corpuscular HGB Conc 34 gm/dL (32-36); Mean Corpuscular Hemoglobin 31 pg (26-34); Mean Corpuscular Volume 93 fL (80-100); Monocytes Percent Auto 6.5 % (0.0-11.0); Neutrophils Percent Auto 77.9 % (42.0-72.0); Platelet Count* 188 K/uL (140-440); RDW Coefficient of Variation % 14.6 % (11.5-15.5); Red Blood Count 2.65 m/uL (4.00-5.20); White Blood Count* 9.95 K/uL (4.50-11.00)
[2022-10-31 09:49] LABS: Slide Review Reflex No
--- NOTE | 2022-10-31 10:03 | P.GYNPN_ITS ---
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 Pfannenstiel - Closure:? Suture - Estimated blood loss: 25 mL at time of original hysterectomy,? 2885 cc from exploratory laparotomy - Intraoperative Complications:? Intra-abdominal hemorrhage - Ancef redosed 2/2 QBL >1500 cc Acute blood loss anemia 2/2 intraabdominal hemorrhage - Source of bleeding controlled with ex lap - s/p 2u of pRBC, 1u FFP, 1u Cryo - Postop Hgb 7.4 --> s/p massive transfusion (2u of pRBC, 1u FFP, 1u Cryo ) --> 9.4 --> 8.6 --> 8.6 --> 7.0 - s/p 1u of pRBC on 10/31 with appropriate rise to 8.8 --> 8.4 --> 8.3 - Vital: Afebrile, HR 98, BP 135/82, RR 16 - Urine output:? Adequate - Benign abdominal exam - Coag normalized this AM - Preop Hgb 14.1? ? - Plan: Will start PO Iron and vitamin C Urinary retention with incomplete emptying of bladder - 800 cc emptied after mckeon replacement yesterday - Mckeon still in place. - Plan: D/c mckeon today when patient is ambulating appropriately Postoperative ileus - NPO and simethicone overnight - Patient passing flatus - Bowel sounds normalized this morning - Plan: advance diet as tolerated Postoperative care: - Diet: Advance as tolerated - Fluid: Encourage oral intake. continue strict I/Os - Activity: Encourage ambulation after transfusion and incentive spirometry - Pain: Oxy, Tylenol and Ibuprofen PRN - DVT prophylaxis: SCDs when not ambulating Dispo: Patient is POD#3 from vaginal hysterectomy and POD#2 from ex lap. Patient is clinically improved. Hgb stable. Will advance milestones today. Postoperative Procedures: Procedures Operation Date: 10/28/22 11:20 Actual Procedure Side Surgeon p Total Vaginal Hysterectomy, Bilateral Salpingectomy, Cystoscopy Delmis Solomon MD Operation Date: 10/29/22 05:55 Actual Procedure Side Surgeon p Exploratory Laparotomy, Evacuation of blood clots and blood, obtain hemostasis. Not Applicable Bindu Eubanks MD Postoperative status: post-op ileus, urinary retention and anemia Postoperative plan: ambulate, advance diet and voiding trials Time Spent With Patient Time: Total time spent is greater than 50% in coordination of care (as documented) at patient's floor/unit and/or counseling patient: Time with patient: 25 - 35 minutes FOREST MANAGEMENT PROFESSOR- PN:Subj Post-Op Subjective Time Seen by Provider: 09:30 Date Seen: 10/31/22 Post Operative Details: Post-operative day number 3: status post vaginal hysterectomy, bilateral salpingectomy, and cystoscopy Post-operative day number 2: emergent exploratory laparotomy. After Mckeon catheter insertion, patient fell significantly better throughout the day. No issues overnight. She still endorses fatigue, however, she feels very hungry and feels reassured that her appetite is improving. She has a headache but it is related to hunger. Would like to start eating soon. Additionally, she is passing a lot of flatus. Her nausea has improved. She's nervous about discontinuing her Mckeon catheter given her urinary retention yesterday. She states that she was able to empty about 100-150 cc everytime she void but always felt full. I discussed that we can see how she feels after eating and ambulating but I would like to see if she's able to urinate on her own without issues. She ok with this plan. Her pain is well controlled on oral pain medications. In fact, she does not fee like she needs the oxycodone at all. She states that it made her nausea worse. We discussed slowly advancing milestones today. Hgb is stable and her vitals are within normal limits now. I want to keep patient in the hospital one more night due to her difficulties with advancing her postoperative milestones. Patient denies fever, chills, chest pain, SOB, n/v, abdominal pain or dizziness. Subjective: patient reports feeling better FOREST MANAGEMENT PROFESSOR-PN: Obj Exam Physical Exam: Vital signs: Temp Pulse Resp BP Pulse Ox O2 Del Method 98.1 F 98 16 135/82 98 10/31/22 03:00 10/31/22 03:00 10/31/22 03:00 10/31/22 03:00 10/31/22 03:00 10/31/22 03:00 Narrative: Physical exam: General: No acute distress Psych:? Alert and oriented x3, full affect HEENT:? Normocephalic, atraumatic Neck:? No cervical adenopathy, no thyromegaly Heart:? Regular rate and rhythm, no murmur rub or gallop Lungs:? Clear to auscultation bilaterally Abdomen:? Normoactive bowel sounds, soft, no tenderness away from surgical site, rebound, or guarding, no masses. Mild tenderness at surgical site. Bandage clean, dry and intact. Skin:? No lesions or rashes but patient is pale Lower extremities:? No edema or erythema. SCDs in place Pelvic exam: Mckeon in place, clear urine. No vaginal bleeding noted Urinary Catheter Management: mckeon: Cath placed during this visit: yes Urethral indwelling: Yes Reason for continuing: acute urinary retention Insertion date: 10/30/22 Insertion time: 13:30 FOREST MANAGEMENT PROFESSOR - PN: Obj Data Labs Labs: Laboratory Results - last 24 hr 10/28/22 10/30/22 10/30/22 10:16 15:16 20:34 WBC RBC Hgb 8.8 L 8.4 L Hct MCV MCH MCHC RDW Coeff of Cris Plt Count Neut % (Auto) Lymph % (Auto) [place] % (Auto) Eos % (Auto) Baso % (Auto) Neut # (Auto) Lymph # (Auto) [place] # (Auto) Eos # (Auto) Baso # (Auto) Blood Type O Positive Antibody Screen NEGATIVE Crossmatch ([facility]) See Detail 10/31/22 09:34 WBC 9.95 RBC 2.65 L Hgb 8.3 L Hct 24.7 L MCV 93 MCH 31 MCHC 34 RDW Coeff of Cris 14.6 Plt Count 188 Neut % (Auto) 77.9 H Lymph % (Auto) 13.6 L [place] % (Auto) 6.5 Eos % (Auto) 0.3 Baso % (Auto) 0.1 Neut # (Auto) 7.80 H Lymph # (Auto) 1.40 [place] # (Auto) 0.60 Eos # (Auto) 0.03 Baso # (Auto) 0.01 Blood Type Antibody Screen Crossmatch ([facility])
--- NOTE | 2022-10-31 15:38 | PC.NURSE ---
Pt has a mild headache at initial assessment. Low grade temp 99, ice pack to forehead. Simethicone chew tabs prn and pt stated she has been passing more flatus. Stat CBC ordered and Dr. Gomes evaluated patient. HGB stable at 8.3. Advanced diet to regular and headache relieved with diet coke per pt report. Alcantar drained 1750 in clear yellow urine. Alcantar discontinued at 1505 pm. Spouse Joe present and supportive at bedside. Pt teaching about increasing her activity level, she will call for assist when she needs the bathroom. Horizontal abdominal dressing remains CDI. Report to Antonietta Bernardo RN.
[2022-10-31] MEDS: OXYCODONE 5 MG TABLET PO (21:00)
--- NOTE | 2022-10-31 23:38 | PC.NURSE ---
Addendum entered by Antonietta Bernardo RN 11/01/22 00:06: If retaining >100ccs, replace mckeon cathether. Original Note: Shift [id number]- Patient is tolerating regular diet in small amounts without increased pain or nausea. Pain is well controlled with active ice and PRN medications, though she states she is having increased abdominal pressure tonight. She is voiding 150-200mls per void. MD Eliseo, states to have patient void, remove abdominal dressing, bladder scan and if retaining >100ccs. She was bladder scanned for 15ccs post void. Abdomen is soft.
[2022-11-01 03:00] VITALS: BP 123/76; PULSE 85; RESP 16; TEMP 36.9; O2SAT 99
[2022-11-01] MEDS: ACETAMINOPHEN 500 MG TABLET 1000 MG PO (03:30)
[2022-11-01] MEDS: LEVOTHYROXINE 75 MCG TABLET PO (06:22)
--- NOTE | 2022-11-01 06:55 | PC.NURSE ---
VSS on RA. Patient is alert and oriented x4, and is call light appropriate. Patient c/o of neck pain, PRN Acetaminophen 1000 mg given with relief. continent of bowel and bladder, ind with transfers. Family at bedside throughout this shift.
[2022-11-01 07:00] VITALS: BP 124/75; PULSE 99; RESP 14; TEMP 36.8; O2SAT 99
--- NOTE | 2022-11-01 07:36 | PM.GYNDS1 ---
DS: Providers Provider Date Seen: 11/01/22 Date of admission: 10/29/22 15:02 Primary care physician: Geri Green MD Admitting Clinician: Delmis Solomon MD Attending Physician on discharge: Delmis Solomon MD Date of Discharge: 11/01/22 DS: Diagnosis Discharge Diagnosis (1) Postoperative ileus: Status: Resolved (2) Status post vaginal hysterectomy: Status: Acute (3) Status post laparotomy: Status: Acute (4) Internal hemorrhage: Status: Resolved (5) Hemorrhagic shock: Status: Resolved (6) Adenocarcinoma of cervix, stage 1: Status: Acute Problem details: Stage IAI, negative margins and negative LVSI on CKC specimen [employer]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 She had a total vaginal hysterectomy with bilateral salpingectomy and cystoscopy for this indication. Surgery was uncomplicated and both uterus and bilateral tubes were normal in appearance. She struggled with postoperative pain control early. In the early childhood assistant hours of postoperative day 1, she developed hypotension and tachycardia, and was diagnosed with intra-abdominal hemorrhage by CT. She had a laparotomy with evacuation of intra-abdominal hemorrhage and suturing of bleeding vessels along the pedicles of the left broad ligament. EBL for the original vaginal hysterectomy was 25 mL, and EBL from measuring the evacuated blood clot during the laparotomy was 2885 mL. Perioperatively, she received 2 units of packed red blood cells, 1 unit of FFP and 1 unit of cryo. In addition to this, she received an additional unit the following day after Hb was noted to be 7 and she was symptomatically anemic. She struggled with postoperative ileus thereafter. She had repeat CT scan on 10/30/2022 showing distended bladder, dilated bowel consistent with ileus, and interval evacuation of hematoma. She had Alcantar catheter replaced that day. By 10/31/2022, she was able to discontinue catheter and void without retention. She began to have return of bowel function on that day. Today, on postoperative day 4 after total vaginal hysterectomy, postoperative day 5 after laparotomy, she reports the pain still a challenge. At this point, she is only using oral Tylenol, as oxycodone makes her vomit. She has been able to ambulate, but notices more pain with ambulation. She is tolerating regular diet and has not had recent vomiting. She is passing gas, but has not had bowel movement yet. However, her oral intake has been very little since surgery. She continues to empty her bladder well. 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 - Exam Physical Exam: Vital signs: Temp Pulse Resp BP Pulse Ox O2 Del Method 98.5 F 85 16 123/76 99 11/01/22 03:00 11/01/22 03:00 11/01/22 03:00 11/01/22 03:00 11/01/22 03:00 11/01/22 03:00 Narrative: General: Pleasant, no acute distress Heart: Regular rate and rhythm, no murmur or gallop Lungs: Clear to auscultation bilaterally Abdomen: Soft, normoactive bowel sounds in all 4 quadrants, no distension, rebound, or guarding, nontender Incision: Clean, dry, and intact with surgical glue in place Lower extremities: No edema, Galo hose in place [employer]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 - DS: Data Data Completed and Pending Labs on day of discharge: Labs from last 24 hours 10/31/22 09:34 WBC 9.95 RBC 2.65 L Hgb 8.3 L Hct 24.7 L MCV 93 MCH 31 MCHC 34 RDW Coeff of Cris 14.6 Plt Count 188 Neut % (Auto) 77.9 H Lymph % (Auto) 13.6 L [place] % (Auto) 6.5 Eos % (Auto) 0.3 Baso % (Auto) 0.1 Neut # (Auto) 7.80 H Lymph # (Auto) 1.40 [place] # (Auto) 0.60 Eos # (Auto) 0.03 Baso # (Auto) 0.01 Procedures Procedures: Procedures Operation Date: 10/28/22 11:20 Actual Procedure Side Surgeon p Total Vaginal Hysterectomy, Bilateral Salpingectomy, Cystoscopy Delmis Solomon MD Operation Date: 10/29/22 05:55 Actual Procedure Side Surgeon p Exploratory Laparotomy, Evacuation of blood clots and blood, obtain hemostasis. Not Applicable Bindu Eubanks MD Imaging CT scan - pelvis: Radiologist's impression: Impression: Interval open abdominal surgery with evacuation of the previously noted hematoma and decreased free fluid in the abdomen and pelvis. Dilated loops of colon compatible with postoperative ileus. Follow-up recommended. Bladder is distended. Re-insertion of Alcantar catheter may be necessary. Please note that all CT scans at this facility use dose modulation, iterative reconstruction, and/or weight-based dosing when appropriate to reduce radiation dose to as low as reasonably achievable. Dictated by Spencer Rosas MD @ 10/30/2022 2:19:09 PM Impression: Interval open abdominal surgery with evacuation of the previously noted hematoma and decreased free fluid in the abdomen and pelvis. Dilated loops of colon compatible with postoperative ileus. Follow-up recommended. Bladder is distended. Re-insertion of Alcantar catheter may be necessary. Please note that all CT scans at this facility use dose modulation, iterative reconstruction, and/or weight-based dosing when appropriate to reduce radiation dose to as low as reasonably achievable. Dictated by Spencer Rosas MD @ 10/30/2022 2:19:09 PM Discharge Plan Discharge Disposition: Home, Self-Care Date of Admission: 10/29/22 15:02 Attending Provider on Discharge: Delmis Solomon Primary Care Provider: Geri Green Condition: Improved Anticipated Discharge Date/Time: 11/01/22 10:37 Discharge Medications: New hydrocodone-acetaminophen 5-325 mg Tablet 1 - 2 tab PO Q4H PRN (Reason: Pain) 14 Days Qty: 25 0RF ascorbic acid (vitamin C) [Vitamin C] 500 mg Tablet 500 mg PO DAILY 14 Days Qty: 14 0RF ferrous sulfate 325 mg (65 mg iron) Tablet 325 mg PO BID 28 Days Qty: 56 0RF docusate sodium 100 mg Capsule 100 mg PO BID PRN (Reason: Constipation) 1 Days Qty: 28 0RF ibuprofen 600 mg Tablet 600 mg PO Q6H PRNQty: 60 0RF bisacodyl 10 mg suppository 10 mg TN DAILY PRN (Reason: constipation) Qty: 12 0RF Continued spironolactone 100 mg tablet 100 mg PO BID Qty: 180 3RF levothyroxine 75 mcg tablet 75 mcg PO QDAY Qty: 90 4RF Discharge Orders: Discharge Order (Routine); Ordered 11/01/22 Ordered By: Delmis Solomon Consulting provider completed their portion of the discharge: No Patient Education: Iron Supplements (By mouth), Hydrocodone/Acetaminophen (By mouth), Ibuprofen (By mouth), Laxative, Stool Softeners (By mouth), Ascorbic Acid (By mouth), Laxatives, Stimulant (Into the rectum), Hysterectomy (DC), Exploratory Laparotomy (DC) Additional Instructions: No lifting greater than 20 lbs for 6 weeks. Do not submerge incision under water for 3 weeks. Nothing per vaginal for [address] while taking narcotic pain medicaitons. Activity Detail: as above Discharge Diet: Regular Follow Up Appointments: Geri Green MD [Primary Care Provider] - (Schedule appointment as needed) Delmis Solomon MD [Staff Physician] - 11/08/22 11:30 am (Schedule 6-week appointment at this time) Forms: [employer] Info Instructions Discharge Comments: follow up next week and 6 weeks post-op
[2022-11-01] MEDS: IBUPROFEN 600 MG TABLET PO (09:15)
[2022-11-01] MEDS: FERROUS SULFATE 325 MG TABLET PO (09:16)
[2022-11-01] MEDS: ASCORBIC ACID 500 MG TABLET PO (09:17)
[2022-11-01 11:00] VITALS: BP 119/82; PULSE 84; RESP 16; O2SAT 100
[2022-11-01] MEDS: HYDROCODONE-ACETAMIN 5-325 MG 1 TAB PO ×2 (12:18→14:19)
[2022-11-01] MEDS: DOCUSATE SODIUM 100 MG CAPSULE PO (12:27)
--- NOTE | 2022-11-01 15:44 | PC.NURSE ---
Pt alert and oriented x3, pleasant and cooperative. Pt reports 4/10 pain in abdomen and lower back, managed with PRN medication. Abdominal dressing CDI and open to air. Education given verbally and written, pt and spouse verbalized understanding. IV was taken out at discharge, catheter intact. Pt was discharged at 1450 via wheelchair and with spouse.
== END 2022-11-01 14:50 | disposition home or self-care (01) | DRG 512 ==
LOC: OR 15:50 → MEDSURG 15:50
PROVIDERS: Obstetrics & Gynecology; Admitting Provider Obstetrics & Gynecology; PCP Family Medicine; Visit Provider Obstetrics & Gynecology
PROC: 0UT97ZZ Resection of Uterus, Via Natural or Artificial Opening (ICD-10-PCS; principal; 2022-10-28 11:00)
PROC: 0UB90ZZ Excision of Uterus, Open Approach (ICD-10-PCS; CPT 58140; 2022-10-29 05:45)
DX: C53.9 Malignant neoplasm of cervix uteri, unspecified (principal); N99.820 Postprocedural hemorrhage of a genitourinary system organ or structure following a genitourinary system procedure; D62 Acute posthemorrhagic anemia; K56.7 Ileus, unspecified; R33.9 Retention of urine, unspecified; K91.89 Other postprocedural complications and disorders of digestive system; G89.18 Other acute postprocedural pain; R10.9 Unspecified abdominal pain; R33.8 Other retention of urine; T81.19XA Other postprocedural shock, initial encounter; I95.1 Orthostatic hypotension; R00.0 Tachycardia, unspecified; E03.9 Hypothyroidism, unspecified; L70.9 Acne, unspecified; Z79.899 Other long term (current) drug therapy
CPT/HCPCS: 00840; 00944; 36415; 36430; 51702; 51798; 74177; 80048; 80053; 81025; 82565; 85018; 85025; 85384; 85610; 85730; 86850; 86900; 86901; 86922; 87635; 88309; 99140; A9270; J0330; J0610; J0690; J1100; J1170; J1200; J1885; J2001; J2250; J2270; J2370; J2405; J2550; J2704; J3010; J3490; J7120; P9012; P9016; P9017; Q9967